=== PATIENT | female | born 1970 | race Caucasian/White ===

== ENCOUNTER 2017-01-10 22:25 | Emergency (ER) | payer SELFPAY ==
[~2017-01-10] VITALS: Ht 162.6 cm; Wt 66.5 kg
[2017-01-10 22:29] VITALS: Ht 162.6 cm; Wt 66.5 kg
[2017-01-11] MEDS ORDERED: DIPHENHYDRAMINE 50 MG INJ IM ONE
--- NOTE | 2017-01-11 00:11 | ERD ---
ER Documentation Chief Complaint Date/Time DATE: 01/11/17 TIME: 00:05 Chief Complaint pelvic pain x 3 days HPI 46-year-old female presents to emergency department for complaints of right lower quadrant abdominal pain that started 3 days ago. Patient describes the pain as sharp pain, 6/10 scale, not better or worse with anything. Patient did not take any medications to help with symptoms. Patient also has been complaining appearing perineal itching and rash in the perineal area, was seen by primary doctor, was given clotrimazole 1% cream on affected area, was diagnosed have matt infection, patient continues to have the symptoms. Patient denies any fever or chills. Patient denies any nausea or vomiting. Patient denies any tourniquet dysuria. Patient denies any flank pain. ROS All systems reviewed and are negative except as per history of present illness. Medications Home Meds Reported Medications [None] No Conflict Check 05/11/13 Allergies Allergies: Coded Allergies: No Known Allergy (Unverified , 05/15/13) PMhx/Soc Medical and Surgical Hx: pt denies Medical Hx History of Surgery: Yes ( x 2 ) Anesthesia Reaction: No Hx Neurological Disorder: No Hx Respiratory Disorders: No Hx Cardiac Disorders: No Hx Psychiatric Problems: No Hx Miscellaneous Medical Probl: No Hx Alcohol Use: No Hx Substance Use: No Hx Tobacco Use: No Smoking Status: Never smoker FmHx Family History: No coronary disease, No diabetes, No other Physical Exam Vitals Vital Signs Date Time Temp Pulse Resp B/P Pulse Ox O2 Delivery O2 Flow Rate FiO2 01/10/17 22:29 98.3 101 20 167/90 100 Physical Exam GENERAL: The patient is well developed and appropriate for usual state of health, in no apparent distress. CHEST: Clear to auscultation bilaterally. There are no rales, wheezes or rhonchi. HEART: Regular rate and rhythm. No murmurs, clicks, rubs or gallops. No S3 or S4. ABDOMEN: Soft, nontender and nondistended. Good bowel sounds. No rebound or guarding. No gross peritonitis. No gross organomegaly or masses. No Cordova sign or McBurney point tenderness. BACK: No midline or flank tenderness. EXTREMITIES: Equal pulses bilaterally. There is no peripheral clubbing, cyanosis or edema. No focal swelling or erythema. Full range of motion. Grossly neurovascularly intact. NEURO: Alert and oriented. Cranial nerves 2-12 intact. Motor strength in all 4 extremities with 5/5 strength. Sensation grossly intact. Normal speech and gait. SKIN: Noted erythema in the perineal area with satellite lesions noted. There is no apparent ecchymosis or petechia. The skin is warm and dry. HEMATOLOGIC AND LYMPHATIC: There is no evidence of excessive bruising or lymphedema. No gross cervical, axillary, or inguinal lymphadenopathy. Result Diagram: 01/10/17235701/10/178 Results 24 hrs Laboratory Tests Test 01/10/17 23:55 01/10/17 23:58 Urine Color YELLOW Urine Clarity CLEAR Urine pH 6.0 Urine Specific Mcandrews 1.017 Urine Ketones NEGATIVEmg/dL Urine Nitrite NEGATIVEmg/dL Urine Bilirubin NEGATIVEmg/dL Urine Urobilinogen NEGATIVEmg/dL Urine Leukocyte Esterase NEGATIVELeu/ul Urine Hemoglobin NEGATIVEmg/dL Urine Glucose 1+mg/dL Urine Total Protein NEGATIVEmg/dl White Blood Count 10.710^3/ul Red Blood Count 4.4210^6/ul Hemoglobin 11.9g/dl Hematocrit 35.3% Mean Corpuscular Volume 79.9fl Mean Corpuscular Hemoglobin 26.9pg Mean Corpuscular Hemoglobin Concent 33.7g/dl Red Cell Distribution Width 17.2% Platelet Count 01714^3/UL Mean Platelet Volume 10.1fl Neutrophils % 61.6% Lymphocytes % 28.8% Monocytes % 7.7% Eosinophils % 0.9% Basophils % 0.6% Nucleated Red Blood Cells % 0.0/100WBC Neutrophils # 6.610^3/ul Lymphocytes # 3.110^3/ul Monocytes # 0.810^3/ul Eosinophils # 0.110^3/ul Basophils # 0.110^3/ul Nucleated Red Blood Cells # 0.010^3/ul Sodium Level 140mmol/L Potassium Level 3.6mmol/L Chloride Level 99mmol/L Carbon Dioxide Level 25mmol/L Anion Gap 20 Blood Urea Nitrogen 16mg/dl Creatinine 0.55mg/dl Glucose Level 104mg/dl Calcium Level 9.0mg/dl Total Bilirubin 0.3mg/dl Direct Bilirubin 0.00mg/dl Indirect Bilirubin 0.3mg/dl Aspartate Amino Transf (AST/SGOT) 99IU/L Alanine Aminotransferase (ALT/SGPT) 80IU/L Alkaline Phosphatase 130IU/L Total Protein 7.9g/dl Albumin 4.6g/dl Globulin 3.30g/dl Albumin/Globulin Ratio 1.39 Lipase 209U/L Current Medications Medications (Trade) Dose Ordered Sig/Angelita Route PRN Reason Start Time Stop Time Status Last Admin Dose Admin Diphenhydramine HCl (Benadryl) 50 mg ONCE ONCE IM 01/11/17 00:00 01/11/17 00:01 DC 01/11/17 00:18 Benadryl was given here in emergency department to help with itching PROCEDURE: CT ABDOMEN/PELVIS WITHOUT CONTRAST CLINICAL INDICATION: 46-year-old female with abdominal pain. TECHNIQUE: The study was performed utilizing a [employer] VCT 64-slice CT scanner. Direct axial sections were obtained through the abdomen and pelvis without the use of intravenous contrast material. Sagittal and coronal reformations were obtained. One or more of the following dose reduction techniques were utilized: automated exposure control, adjustment of the mA and/ or kV according to patient's size or use of iterative reconstruction technique. The images were reviewed on a PACS workstation. CTD/vol = 10.6 mGy; Total Exam DLP = 501.4 mGy-cm. COMPARISON: None. FINDINGS: The lung bases are unremarkable. There is no evidence for significant pleural effusion. The liver has a normal contour and is enlarged with a maximal length of 26.3 cm. There is marked diffuse decreased density throughout the liver consistent with fatty infiltration without focal areas of abnormal density. No intrahepatic nor extrahepatic biliary ductal dilatation is seen. The gallbladder contains a dominant calcified gallstone measuring 1.8 x 2.1 cm without significant wall thickening or pericholecystic fluid.. The pancreas is without areas of abnormal attenuation. The spleen is identified and has a normal size without abnormal density. The adrenal glands are unremarkable. The kidneys are without abnormal density. No hydroureteronephrosis nor nephroureterolithiasis is evident. The urinary bladder contains urine. There is mild retained stool throughout the colon without gross bowel obstruction. The appendix is visualized and is without abnormal thickening or surrounding inflammatory reaction. The uterus is anteflexed. There is no significant pelvic free fluid. The aortoiliac vessels are without aneurysmal dilatation. The osseous structures are intact. IMPRESSION: 1. Hepatomegaly with diffuse fatty infiltration. 2. Cholelithiasis. 3. No CT evidence for obstructive uropathy or renal calculi. 4. Mild retained stool throughout the colon without gross bowel obstruction. 5. No CT evidence for appendicitis. .Michele Roland MD, MD Date Time Electronically viewed and signed by .Michele Roland MD, on 01/11/2017 01:55 .M/ CC: BENNETT MCBRIDE [employer] Procedures/MDM Medical Decision Making: Patient symptoms of abdominal pain nonspecific at this time. Patient has a matt infection and will be treated. There is low suspicion for abdominal emergencies at this time. Patients abdominal exam is normal at this time. Patients radiology exam does not show any abdominal emergencies at this time. There is low suspicion for appendicitis, cholecystitis , abdominal aortic aneurysms or peritonitis at this time. There is low suspicion for sepsis. Patient appears well and is hemodynamically stable. Disposition: Home. Condition: Stable Prescription tramadol, miconazole cream, Diflucan, hydroxyzine Instructions: Patient is advised to take medications as prescribed. Patient is advised to rest, increase fluid intake and do brat diet for next 1-2 days and progress as tolerated. Patient is advised that if symptoms are worse, severe abdominal pain, uncontrolled vomiting, high fever, severe flank pain, worst signs and symptoms, to return to the emergency department immediately. Otherwise, patient can follow up with primary care doctor in 5-7 days. Departure Diagnosis: Primary Impression: Abdominal pain Abdominal location: right lower quadrant Qualified Code: R10.31 - Right lower quadrant abdominal pain Additional Impression: Candidal skin infection Condition: Stable Patient Instructions: Abdominal Pain, Matt Skin Infection (Adult) Additional Instructions: Patient is advised to take medications as prescribed. Patient is advised to rest, increase fluid intake and do brat diet for next 1-2 days and progress as tolerated. Patient is advised that if symptoms are worse, severe abdominal pain , uncontrolled vomiting, high fever, severe flank pain, worst signs and symptoms , to return to the emergency department immediately. Otherwise, patient can follow up with primary care doctor in 5-7 days. BENNETT MCBRIDE NP Jan 11, 2017 00:10
[2017-01-11 00:13] LABS: ADD SCAN DIFF NO
[2017-01-11 00:16] LABS: BASOPHIL # 0.1 10^3/ul (0.0-0.1); BASOPHILS % 0.6 % (0.0-2.0); EOSINOPHILS # 0.1 10^3/ul (0.0-0.5); EOSINOPHILS % 0.9 % (0.0-7.0); HEMATOCRIT 35.3 % (37.0-47.0); HEMOGLOBIN 11.9 g/dl (12.0-16.0); LYMPHOCYTES # 3.1 10^3/ul (0.8-2.9); LYMPHOCYTES % 28.8 % (15.0-51.0); MEAN CORPUSCULAR HEMOGLOBIN 26.9 pg (29.0-33.0); MEAN CORPUSCULAR HGB CONC 33.7 g/dl (32.0-37.0); MEAN CORPUSCULAR VOLUME 79.9 fl (82.0-101.0); MEAN PLATELET VOLUME 10.1 fl (7.4-10.4); MONOCYTE # 0.8 10^3/ul (0.3-0.9); MONOCYTES % 7.7 % (0.0-11.0); NEUTROPHIL # 6.6 10^3/ul (1.6-7.5); NEUTROPHILS % 61.6 % (39.0-77.0); PLATELET COUNT 369 10^3/UL (140-415); RED BLOOD COUNT 4.42 10^6/ul (4.20-5.40); RED CELL DISTRIBUTION WIDTH 17.2 % (11.5-14.5); WHITE BLOOD COUNT 10.7 10^3/ul (4.8-10.8)
[2017-01-11 00:31] LABS: ALBUMIN 4.6 g/dl (3.3-4.9); ALBUMIN/GLOBULIN RATIO 1.39; BILIRUBIN,INDIRECT 0.3 mg/dl (0-1.1); BILIRUBIN,TOTAL 0.3 mg/dl (0.2-1.3); CREATININE 0.55 mg/dl (0.44-1.00); POTASSIUM 3.6 mmol/L (3.5-5.1); TOTAL PROTEIN 7.9 g/dl (6.1-8.1)
[2017-01-11 00:37] LABS: ADD UMIC NO; UR ASCORBIC ACID 40 mg/dL (NEGATIVE); UR BILIRUBIN (Dip) NEGATIVE (NEGATIVE); UR BLOOD (Dip) NEGATIVE (NEGATIVE); UR CLARITY CLEAR (CLEAR); UR COLOR YELLOW (YELLOW); UR GLUCOSE (Dip) 1+ mg/dL (NEGATIVE); UR KETONES (Dip) NEGATIVE (NEGATIVE); UR LEUKOCYTE ESTERASE (Dip) NEGATIVE Leu/ul (NEGATIVE); UR NITRITE (Dip) NEGATIVE (NEGATIVE); UR SPECIFIC GRAVITY (Dip) 1.017 (1.003-1.030); UR TOTAL PROTEIN (Dip) NEGATIVE (NEGATIVE); UR UROBILINOGEN (Dip) NEGATIVE (NEGATIVE)
--- NOTE | 2017-01-11 01:55 | RADRPT ---
PROCEDURE: CT ABDOMEN/PELVIS WITHOUT CONTRAST CLINICAL INDICATION: 46-year-old female with abdominal pain. TECHNIQUE: The study was performed utilizing a [id number] VCT 64-slice CT scanner. Direct axia l sections were obtained through the abdomen and pelvis without the use of intravenous contrast mate rial. Sagittal and coronal reformations were obtained. One or more of the following dose reduction t echniques were utilized: automated exposure control, adjustment of the mA and/or kV according to pat ient's size or use of iterative reconstruction technique. The images were reviewed on a PACS workst atDada Room. CTD/vol = 10.6 mGy; Total Exam DLP = 501.4 mGy-cm. COMPARISON: None. FINDINGS: The lung bases are unremarkable. There is no evidence for significant pleural effusion. The liver has a normal contour and is enlarged with a maximal length of 26.3 cm. There is marked diffuse decre ased density throughout the liver consistent with fatty infiltration without focal areas of abnormal density. No intrahepatic nor extrahepatic biliary ductal dilatation is seen. The gallbladder contai ns a dominant calcified gallstone measuring 1.8 x 2.1 cm without significant wall thickening or luiz cholecystic fluid.. The pancreas is without areas of abnormal attenuation. The spleen is identified and has a normal size without abnormal density. The adrenal glands are unremarkable. The kidneys ar e without abnormal density. No hydroureteronephrosis nor nephroureterolithiasis is evident. The urin melisa bladder contains urine. There is mild retained stool throughout the colon without gross bowel ob struction. The appendix is visualized and is without abnormal thickening or surrounding inflammatory reaction. The uterus is anteflexed. There is no significant pelvic free fluid. The ao rtoiliac vessels are without aneurysmal dilatation. The osseous structures are intact. IMPRESSION: 1. Hepatomegaly with diffuse fatty infiltration. 2. Cholelithiasis. 3. No CT evidence for obstructive uropathy or renal calculi. 4. Mild retained stool throughout the colon without gross bowel obstruction. 5. No CT evidence for appendicitis. .Michele Roland MD, MD Date Time Electronically viewed and signed by .Michele Roland MD, MD on 01/11/2017 01:55 .[place]
[2017-01-11] MEDS ORDERED: TRAM50TA2 PO (02:12)
[2017-01-11] MEDS ORDERED: MCN2C15 TOP (02:12)
[2017-01-11] MEDS ORDERED: HYDR-3011 PO (02:12)
[2017-01-11] MEDS ORDERED: FLUC150T17 PO (02:12)
[2017-01-11 02:43] VITALS: BP 182/91; PULSE 86; RESP 18
== END 2017-01-11 02:43 | disposition home or self-care (01) ==
LOC: FTE 22:25
DX: R10.31 Right lower quadrant pain (principal); B37.2 Candidiasis of skin and nail
CPT/HCPCS: 36415; 74176; 80053; 81003; 83690; 85025; 96372; 99285; J1200